=== PATIENT | female | born 1995 | race Two or more races ===

== ENCOUNTER 2025-05-23 19:55 | Observation (INO) | payer MEDICAID, SELFPAY ==
[2025-05-23] VITALS (46 sets, daily range): BP systolic 107; BP diastolic 61; PULSE 104–131; RESP 15–99; TEMP 37.2–37.4; O2SAT 87–100; BMI 28.8
[2025-05-23] MEDS: RINGERS LACTATED 1000 ML 1,000 ML 999 ML IV ×2 (20:30→21:27)
[2025-05-23] MEDS: ACETAMINOPHEN IVPB 1,000 MG/100 ML VIAL 250 MG IV (20:42)
[2025-05-23] MEDS: ONDANSETRON INJ 2 MG/ML INJ 2 ML 4 MG IVP (20:42)
[2025-05-23 21:18] LABS: COVID-19 Antigen (In-House) Negative (Negative); Influenza A Ag Negative; Influenza B Ag Negative
--- NOTE | 2025-05-23 21:19 | PD.LDPN ---
Documentation for date of: 05/23/25 OB Labor Progress Note Assessment and Plan Comments: Triage Note Sania is a 29yo with SIUP at 20+wk presenting to L&D for n/v, unable to keep anything down today. Also having some mild abdominal cramping and lightning-like pain into pubic area . She notes no painful/regular ctx, no vaginal bleeding, no loss of fluid. Normal movement. ROS negative other than what was described above. Normotensive, mild tachycardia, afebrile General: well developed, well nourished, no acute distress, conversant Cardiac: regular rhythm Lungs: breathing without distress Abdomen: soft, gravid, non-tender, no rebound or guarding + doptones 180's initially, 150's after IVF [place]: no regular ctx pattern Labs: Influenza swab negative for flu A and B Covid swab: negative UA normal Assessment: Sania is a 29yo with SIUP at 20+wk with likely viral gastritis. After 1L IVF, IV zofran and PO tylenol, she is feeling better, able to tolerate PO intake and cramping resolved. Vitals wnl, benign exam. Influenza and Covid testing negative, UA wnl. Plan: -Discussed diagnosis and recommendations for good hydration and rest at home -Rx zofran 4mg PO Q6hr prn to her pharmacy -Follow up at routine OB visit as scheduled -Return precautions discussed -Safe for discharge at this time Casie Lazcano MD
[2025-05-23 23:09] LABS: Collection Type, Urine Clean Catch
[2025-05-23 23:27] LABS: Bilirubin,Urine Negative (Negative); Blood,Urine Negative (Negative); Clarity,Urine Clear (Clear/Hazy); Color,Urine Colorless (Lt Yel-Yel); Glucose, Urine Negative (Negative); Ketones,Urine Negative (Negative); Leukocyte Esterase,Urine Negative (Negative); Nitrite,Urine Negative (Negative); PH,Urine 8.0 (5.0-7.0); Protein,Urine Negative (Neg - Trace); RBC,Urine < 1 /hpf (0-3); Specific Gravity,Urine 1.012 (1.001-1.035); Squamous Epithelial Cell,Urine 2 /hpf (0-5); Urobilinogen,Urine Negative mg/dL (0.0-1.0); WBC,Urine < 1 /hpf (0-5)
== END 2025-05-24 00:10 | disposition home or self-care (01) ==
PROVIDERS: Admitting Provider Obstetrics & Gynecology; Visit Provider Obstetrics & Gynecology
DX: O26.892 Other specified pregnancy related conditions, second trimester (principal); Z3A.20 20 weeks gestation of pregnancy; R10.2 Pelvic and perineal pain
CPT/HCPCS: 59899; 81001; 87502; 87811; 96374; J0131; J2405; J7120

== ENCOUNTER 2025-09-01 15:29 | Observation (INO) | payer MEDICAID, SELFPAY ==
[2025-09-01] VITALS (31 sets, daily range): BP systolic 122; BP diastolic 82; PULSE 85–113; RESP 18–98; TEMP 36.7; O2SAT 97–100; BMI 31.4
--- NOTE | 2025-09-01 16:12 | XR_ITS ---
Examination: Biophysical profile, ultrasound Date and time of exam: September 01, 2025, 1624 hours INDICATIONS: decelerations on testing today Technique: Multiple transabdominal sonographic images of the pelvis abdomen obtained. Attention is directed to the breathing movement, gross body movement, amniotic fluid volume and tone. Findings: Amniotic fluid index 17.9 cm Total biophysical profile is 8 of 8. breathing movement is 2. Gross body movement is 2. tone is 2. Qualitative amniotic fluid volume is 2 Impression: Biophysical profile is 8 of 8.
== END 2025-09-01 18:43 | disposition home or self-care (01) ==
PROVIDERS: Admitting Provider Specialist; Visit Provider Specialist
DX: O34.523 Maternal care for prolapse of gravid uterus, third trimester (principal); Z3A.34 34 weeks gestation of pregnancy
CPT/HCPCS: 59025; 59899; 76819

== ENCOUNTER 2025-09-14 11:55 | Observation (INO) | payer MEDICAID, SELFPAY ==
[2025-09-14 12:15] VITALS: BP 110/69; PULSE 90; RESP 16; TEMP 36.7; O2SAT 97
[2025-09-14 12:20] VITALS: BMI 31.6
[2025-09-14 12:21] VITALS: BP 110/69; PULSE 90; RESP 16; RESP 97; TEMP 36.7
[2025-09-14 12:31] LABS: ROM Kit Lot # 58106258
[2025-09-14 12:32] LABS: ROM Swab Mixed By: PATTC1; Rupture of Fetal Membranes Negative (Negative); Swb Mxed in Solvent 1 min? Yes
== END 2025-09-14 12:50 | disposition home or self-care (01) ==
PROVIDERS: Admitting Provider Specialist; Visit Provider Specialist
DX: Z34.90 Encounter for supervision of normal pregnancy, unspecified, unspecified trimester (principal); Z3A.00 Weeks of gestation of pregnancy not specified
CPT/HCPCS: 59899; 84112

== ENCOUNTER 2025-09-18 16:28 | Observation (INO) | payer MEDICAID, SELFPAY ==
[2025-09-18] VITALS (11 sets, daily range): BP systolic 125; BP diastolic 89; PULSE 91–114; RESP 18–98; TEMP 36.8; O2SAT 97–99; BMI 32.3
[2025-09-18 17:15] LABS: ROM Kit Exp Date# 4/11/28; ROM Swab Mixed By: LAUTH; Rupture of Fetal Membranes Negative (Negative); Swb Mxed in Solvent 1 min? Yes
== END 2025-09-18 17:30 | disposition home or self-care (01) ==
PROVIDERS: Admitting Provider Specialist; Visit Provider Specialist
DX: O47.1 False labor at or after 37 completed weeks of gestation (principal); Z3A.37 37 weeks gestation of pregnancy
CPT/HCPCS: 59025; 59899; 84112

== ENCOUNTER 2025-09-23 00:35 | Inpatient (IN) | payer MEDICAID, SELFPAY ==
[2025-09-23] VITALS (113 sets, daily range): BP systolic 104–180; BP diastolic 69–124; PULSE 84–139; RESP 16–99; TEMP 36.6–37; O2SAT 86–100; BMI 32.0
[2025-09-23 01:06] LABS: ROM Kit Exp Date# 04/11/28; ROM Kit Lot # 58106258; Swb Mxed in Solvent 1 min? Yes
[2025-09-23 01:07] LABS: Rupture of Fetal Membranes Negative (Negative)
[2025-09-23] MEDS: Vancomycin Inj 1,000 MG in SODIUM CHLORIDE 0.9% 250 ML 250 ML 120 MG IV (04:16)
[2025-09-23] MEDS: RINGERS LACTATED 1000 ML 1,000 ML 100 ML IV ×2 (04:18→08:56)
[2025-09-23] MEDS: fentaNYL CIT INJ 50 mCg/ML AMP 2ML 100 MCG IVP (04:21)
[2025-09-23 05:03] LABS: Basophils # (Auto) 0.0 Thou/mm3 (0.0-0.2); Basophils % (Auto) 0 % (0-2.5); Eosinophils # (Auto) 0.1 Thou/mm3 (0.0-0.5); Eosinophils % (Auto) 1 % (0-10); Hematocrit 38.2 % (36.0-46.0); Hemoglobin 12.8 g/dL (12.0-16.0); Immature Granulocytes Auto 0.09 Thou/mm3 (0.00-0.00); Lymphocytes # (Auto) 2.8 Thou/mm3 (1.0-4.8); Lymphocytes % (Auto) 21 % (10-50); Mean Corpuscular HGB Conc 33.5 g/dl (31.0-37.0); Mean Corpuscular Hemoglobin 30.2 pg (25.0-35.0); Mean Corpuscular Volume 90 fL (80-100); Monocytes # (Auto) 0.7 Thou/mm3 (0.0-0.8); Monocytes % (Auto) 6 % (0-12); Neutrophils # (Auto) 9.5 Thou/mm3 (1.8-7.7); Neutrophils % (Auto) 71 % (37-80); Nucleated Red Blood Cell # 0.00 Thou/mm3 (0.00-0.00); Nucleated Red Blood Cell % 0 /100 WBC (0); Platelet Count 171 Thou/mm3 (140-440); RDW Standard Deviation 44.5 fL (36.4-46.3); Red Blood Count 4.24 Miln/mm3 (4.00-5.20); White Blood Count 13.2 Thou/mm3 (3.6-11.0)
--- NOTE | 2025-09-23 06:02 | PD.LDHP ---
Documentation for date of: 09/23/25 OB Labor/Induct. HPI History of Present Illness : 3 Para: 2 Term pregnancies: 2 pregnancies: 0 Living children: 2 History of Abortions: Spontaneous and Elective: 0 History of Vaginal deliveries: 2 History of sections: No History of : No Date of last menstrual period: 01/02/25 [place]: 10/09/25 Gestational Age (weeks): 37 Gestational Age (days): 5 Gestational age based on last menstrual period: 37 History of present illness: H and P dictated in STAT line #9 in [facility]: [id number] History of Present Adequate Care: Yes Labs Labs: Positive: Rubella Titre and Group Beta Strep, Negative: RPR, Hepatitis B, HIV, Chlamydia and Gonorrhea and Unknown: Herpes Type 1, Herpes Type 2 and Covid-19 Past Medical History Surgical History SURGICAL: Negative Section Meds Home Medications and Allergies Home Medications ?Medication ?Instructions ?Recorded ?Confirmed ?Type vit no.95-ferrous 1 tab PO 09/01/25 History fumarate 28 mg-folic acid 800 mcg tablet () Allergies Allergy/AdvReac Type Severity Reaction Status Date / Time Penicillins Allergy Severe SWELLING Verified 09/23/25 01:43 OB Exam Physical Exam Vital signs: Temp Pulse Resp BP Pulse Ox 98.6 F 90 18 121/84 98 09/23/25 00:48 09/23/25 05:57 09/23/25 00:48 09/23/25 05:57 09/23/25 06:00 OB Results Labs 09/23/25 03:20 Labs: Short CBC 09/23/25 Range/Units 03:20 WBC 13.2 H (3.6-11.0) Thou/mm3 Hgb 12.8 (12.0-16.0) g/dL Hct 38.2 (36.0-46.0) % Plt Count 171 (140-440) Thou/mm3
[2025-09-23 06:11] LABS: Syphilis Nonreactive (Nonreactive)
--- NOTE | 2025-09-23 06:32 | ESHP_ITS ---
RE: MAX WEBBER : 1995 DATE OF ADMISSION: 09/23/2025 HISTORY OF PRESENT ILLNESS: This is a 29-year-old 3, para 2-0-0-2 with due date of 10/09/2025, with intrauterine at 37 weeks and 5 days, who presents to labor and delivery complaining of contractions and is noted to be in early labor. Her care was complicated by group B Streptococcus vaginal and rectal swab positive. She has had elevated blood pressures since her admission to labor and delivery. She denies any headache, change in vision, right upper quadrant pain. She denies any chest pain, palpitations, shortness of breath, flank pain, or lower extremity pain. Her blood pressures were normal throughout her . ALLERGIES: PENICILLIN. MEDICATIONS: multivitamin one p.o. daily. SOCIAL HISTORY: She denies any alcohol, drug use, or smoking. PAST MEDICAL HISTORY: Denies. FAMILY HISTORY: Paternal grandfather, brain cancer. Mother, depression and anxiety. OBSTETRIC HISTORY: 2012, 40 week normal vaginal delivery, female, no complications. 2018, 40 week normal vaginal delivery, male, no complications. PAST SURGICAL HISTORY: Denies. REVIEW OF SYSTEMS: As above. PHYSICAL EXAMINATION: VITAL SIGNS: Blood pressure 140/90, heart rate 88, respirations 18, temperature is 98.6, weight 168 pounds. HEENT: Oropharynx and sclerae are clear. LUNGS: Clear to auscultation bilaterally. HEART: Regular rate and rhythm. ABDOMEN: Gravid, consistent with estimated weight 6 pounds 7 ounces. PELVIC: See RN notes. EXTREMITIES: Nontender. SKIN: No gross rashes or lesions. NEUROLOGIC: No focal deficit. ASSESSMENT AND PLAN: Intrauterine at 37 weeks and 5 days, labor, gestational hypertension. Anticipate vaginal delivery. Informed consent was obtained. The patient made aware of the risk, complication, alternative benefits of operative vaginal delivery and delivery, and agrees with these modes of delivery if indicated. DT: : TT: 06:31:00 Ref: [id number] - TID: [id number]
--- NOTE | 2025-09-23 06:48 | PD.LDPN ---
Documentation for date of: 09/23/25 OB Labor Progress Note Pelvic Exam Dilation (cm): 6 Effacement (%): 90 station: -1 Amniotic membrane status: Ruptured Contractions Monitor mode: External Contraction frequency: 1-8 Contraction intensity: Moderate Status status: Category l Assessment and Plan Comments: Anticipate . History of Present Illness HPI Pain relief with epidural, no complaints
[2025-09-23 07:04] LABS: Fibrinogen 423 mg/dL (175-375); INR 0.9 (0.9-1.3); Partial Thromboplastin Time 30.4 Seconds (22.0-36.0); Prothrombin Time 10.0 Seconds (9.0-12.2)
[2025-09-23 08:05] LABS: Collection Type, Urine Catheter
[2025-09-23 08:16] LABS: Creatinine,Random Urine 77 mg/dL (30-125); Protein Total, Random Urine 27 mg/dL (1-14)
[2025-09-23 08:26] LABS: Alanine Aminotransferase 10 U/L (10-49); Albumin, Serum 3.8 gm/dL (3.5-5.0); Albumin/Globulin Ratio 1.9 (1.2-2.2); Alkaline Phosphatase 116 U/L (46-116); Anion Gap 12 (7-16); Aspartate Amino Transferase 31 U/L (0-34); BUN/Creatinine Ratio 9 Ratio (12-20); Bilirubin,Total 0.3 mg/dL (0.3-1.2); Blood Urea Nitrogen 6 mg/dL (9-23); Calcium 8.8 mg/dL (8.3-10.6); Calcium (Corrected) 9.0 mg/dL (8.5-10.1); Carbon Dioxide 20.3 mMol/L (20.0-31.0); Chloride 108 mMol/L (98-107); Creatinine (Component) 0.7 mg/dL (0.6-1.3); Estimated Creatinine Clearance 111.3 mL/min (>60); Globulin 2.0 gm/dL (2.3-3.5); Glucose 92 mg/dL (74-106); Osmolality,Calculated 277 (275-295); Potassium 4.2 mMol/L (3.4-5.1); Sodium 140 mMol/L (136-145); Total Protein 5.8 gm/dL (5.7-8.2); eGFR > 60 See Note
--- NOTE | 2025-09-23 09:55 | ESDS_ITS ---
DS: Providers Provider Date of admission: 09/23/25 02:55 Primary care physician: Physician No Primary/Family Admitting Provider: Nolberto Bailey MD Attending Provider on Admission: Nolberto Bailey MD Attending Provider on DC: Nolberto Bailey MD Discharging Provider: Nolberto Bailey MD DS: Diagnosis Problem List Completed Was Problem List Reviewed/Reconciled?: Yes Summary/Hosp Course Brief History: Pain relief with epidural, no complaints Peripartum Data Delivery Method: Normal Vaginal Delivery Time Spent with Patient Time attestation: Total time spent providing and/or coordinating discharge services: Exam Vital Signs Temp Pulse Resp BP Pulse Ox O2 Del Method 98.3 F 110 H 18 161/88 H 97 Room Air 09/23/25 09:02 09/23/25 09:50 09/23/25 09:02 09/23/25 09:50 09/23/25 09:50 09/23/25 05:43 Discharge Plan Plan Patient Disposition: HOME (Self Care) Patient condition on transfer: Stable Prescriptions/Referrals Prescriptions/Med Rec: New ibuprofen 600 mg tablet 600 mg PO Q6H PRN (Reason: pain) Qty: 30 0RF Continued PNV no.95-ferrous fumarate-FA [] 28 mg iron- 800 mcg tablet 1 tab PO QDAY Patient Comments: take 1 tablet by mouth once daily Referrals: No Primary/Family,Physician [Primary Care Provider] Patient/Caregiver Discharge Instructions Discharge Activity: activity as tolerated Other Discharge Activity Instructions:: Follow up office 6 weeks. Print Language: [place]ian Stand Alone Forms: [facility] Award Info., Patient Portal Info Letter Discharge Order Discharge Orders: Discharge (Routine); Ordered 09/24/25 Ordered By: Nolberto Bialey Planned Discharge Date 09/24/25
[2025-09-23] MEDS: IBUPROFEN TAB 400 MG TABLET 800 MG PO ×2 (11:08→20:02)
[2025-09-23] MEDS: BENZO/LANO/ALOE (Dermoplast) 60 GM CAN 1 SPRAY TOP (11:30)
[2025-09-23 11:38] LABS: Bilirubin,Urine Negative (Negative); Blood,Urine Negative (Negative); Clarity,Urine Clear (Clear/Hazy); Color,Urine Lt-Yellow (Lt Yel-Yel); Glucose, Urine Negative (Negative); Hyaline Casts,Urine < 1 /hpf (0-1); Ketones,Urine Negative (Negative); Leukocyte Esterase,Urine Negative (Negative); Nitrite,Urine Negative (Negative); PH,Urine 7.0 (5.0-7.0); Protein,Urine Trace (Neg - Trace); RBC,Urine 2 /hpf (0-3); Specific Gravity,Urine 1.014 (1.001-1.035); Squamous Epithelial Cell,Urine < 1 /hpf (0-5); Urobilinogen,Urine Negative mg/dL (0.0-1.0); WBC,Urine 7 /hpf (0-5)
[2025-09-23 15:26] LABS: Basophils # (Auto) 0.0 Thou/mm3 (0.0-0.2); Basophils % (Auto) 0 % (0-2.5); Eosinophils # (Auto) 0.0 Thou/mm3 (0.0-0.5); Eosinophils % (Auto) 0 % (0-10); Hematocrit 33.3 % (36.0-46.0); Hemoglobin 11.4 g/dL (12.0-16.0); Immature Granulocytes Auto 0.08 Thou/mm3 (0.00-0.00); Lymphocytes # (Auto) 1.9 Thou/mm3 (1.0-4.8); Lymphocytes % (Auto) 12 % (10-50); Mean Corpuscular HGB Conc 34.2 g/dl (31.0-37.0); Mean Corpuscular Hemoglobin 31.1 pg (25.0-35.0); Mean Corpuscular Volume 91 fL (80-100); Monocytes # (Auto) 0.8 Thou/mm3 (0.0-0.8); Monocytes % (Auto) 5 % (0-12); Neutrophils # (Auto) 13.2 Thou/mm3 (1.8-7.7); Neutrophils % (Auto) 82 % (37-80); Nucleated Red Blood Cell # 0.00 Thou/mm3 (0.00-0.00); Nucleated Red Blood Cell % 0 /100 WBC (0); Platelet Count 135 Thou/mm3 (140-440); RDW Standard Deviation 44.1 fL (36.4-46.3); Red Blood Count 3.67 Miln/mm3 (4.00-5.20); White Blood Count 16.0 Thou/mm3 (3.6-11.0)
--- NOTE | 2025-09-23 20:07 | PD.LDDELS ---
Data ([place]) Data Hx Section: No : 3 Term: 2 : 0 Livin Abortions: Spontaneous & Theraputic: 0 Delivery Data ([place]) Labor Data Initiation of labor: Spontaneous Induction/Augmentation Agent: None ROM date: 09/23/25 ROM time: 06:45 Amniotic membrane rupture type: Artificial Amniotic fluid description: Clear Delivery Data EDC: 10/09/25 EDC calculated by:: LMP/early US confirmation Onset of labor date: 09/23/25 Onset of labor time: 05:32 Complete dilation date: 09/23/25 Complete dilation time: 09:29 [place] delivery date: 09/23/25 delivery time: 09:37 Gestational age (weeks): 37 Gestational age (days): 5 Placenta delivery date: 09/23/25 Placenta delivery time: 09:48 Stage 1 total time: Labor - Stage 1 Duration 3 hours and 57 minutes Delivered by: Nolberto Bailey Delivery nurse: Alejandra Recio RN [facility] nurse: Jake ESPAÑA RN [employer] Apprentice at delivery: No Support person(s) at delivery: fob and grandma of Delivery Method Delivery method: Normal Vaginal Delivery Presentation: Vertex position: OA Anesthesia Type Anesthesia Type: Epidural Placenta Placenta delivery description: Spontaneous Cord blood sent to lab: Yes cord blood collection: Cord Blood Type Episiotomy Episiotomy description: None Lacerations #1: Vaginal: 1st degree Perineal repair Sutures used for repair: 3.0 Chromic EBL Estimated blood loss (ml): 150 Umbilical Cord cord description: 3 Vessels Additional Procedures None Complications Complications: None Data ([place]) [place] Data order: 1 's gender: Female Identification band number: [id number] weight (gms): 6 lb 1 oz Weight (pounds): 6 lbs and 1.0 ozs length: 19 in 1 minute: 9 5 minutes: 9
[2025-09-24 04:02] VITALS: BP 98/61; PULSE 98; RESP 16; TEMP 36.6; O2SAT 98
--- NOTE | 2025-09-24 06:51 | ESPR_ITS ---
RE: MAX WEBBER : 1995 DATE OF SERVICE: 09/24/2025 SUBJECTIVE: day #1. Patient denies any problem or complaints. She is voiding, she is ambulating, she is tolerating diet, she is passing flatus. She denies any excessive vaginal bleeding. She denies any dizziness or lightheadedness. She denies any chest pain, palpitations, shortness of breath, or lower extremity pain. OBJECTIVE: VITAL SIGNS: Blood pressure 98/61, heart rate 98, respirations 16, temperature is 97.8, pulse oximetry is 90% on room air. LUNGS: Clear to auscultation bilaterally. HEART: Regular rate and rhythm. ABDOMEN: Fundus is firm. EXTREMITIES: Nontender. LABORATORY DATA: Hemoglobin pre-delivery is 12.8, post-delivery is 11.4. ASSESSMENT: day #1 status post spontaneous vaginal delivery. Gestational thrombocytopenia. Expect spontaneous resolution. Gestational hypertension with blood pressures normalizing since delivery. Expectant management. PLAN: Discharge home when baby is cleared. Discharge instructions given. Follow up in the office in 6 weeks. DT: 06:39:53 TT: 06:49:00 Ref: [id number] - TID: [id number]
[2025-09-24 08:15] VITALS: BP 119/75; PULSE 95; RESP 18; TEMP 36.8; O2SAT 97
[2025-09-24 13:38] VITALS: BP 109/73; PULSE 101; RESP 18; TEMP 36.8; O2SAT 97
== END 2025-09-24 15:20 | disposition home or self-care (01) | DRG 560 ==
LOC: S4SX 09:51 → S4NX 11:49
PROVIDERS: Admitting Provider Specialist; Visit Provider Specialist
DX: O13.4 Gestational [pregnancy-induced] hypertension without significant proteinuria, complicating childbirth (principal); Z37.0 Single live birth; Z3A.37 37 weeks gestation of pregnancy; O70.0 First degree perineal laceration during delivery; O99.12 Other diseases of the blood and blood-forming organs and certain disorders involving the immune mechanism complicating childbirth; D69.59 Other secondary thrombocytopenia
CPT/HCPCS: 36415; 59409; 80053; 81001; 82570; 84112; 84156; 85025; 85384; 85610; 85730; 86780; 86850; 86900; 86901; 94762; J2795; J3010; J3373; J7050; J7120; A9270